=== PATIENT | male | born 1965 | race Caucasian/White ===

== ENCOUNTER 2017-08-25 10:11 | Emergency (ER) | payer OTHER ==
[~2017-08-25] VITALS: Ht 182.9 cm; Wt 86.2 kg
[2017-08-25 10:15] VITALS: BP 142/85
--- NOTE | 2017-08-25 10:18 | NUR ---
PT AMBULATED TO BED 4
--- NOTE | 2017-08-25 10:19 | NUR ---
DR. WATTS BEDSIDE TO EXAM PT.
[2017-08-25 10:59] VITALS: BP 132/84
== END 2017-08-25 10:58 | disposition home or self-care (01) ==
LOC: MED 10:11
DX: H93.13 Tinnitus, bilateral (principal)
CPT/HCPCS: 99282